=== PATIENT | male | born 1945 | race Caucasian/White ===

== ENCOUNTER → 2018-07-29 07:08 | Outpatient (CLI) | payer MEDICARE, OTHER, SELFPAY ==
--- NOTE | 2018-07-29 07:12 | CT_ITS ---
STUDY: CT ABDOMEN AND PELVIS WITH CONTRAST REASON FOR EXAM: Male, 73 years old. 6 month history of right lower rib pain. RADIATION DOSAGE (If Supplied By Facility): CTDIvol = ( 13.06 ) mGy, DLP = ( 765.55 ) mGycm TECHNIQUE: Transaxial images were obtained from the dome of the diaphragm to the symphysis pubis with oral contrast. 100 IV/Oral Isovue 300 was administered. Sagittal and coronal images were reconstructed. Individualized dose optimization techniques were used for this CT. COMPARISON: None. FINDINGS: The visualized lung bases are unremarkable. The visualized portions of the heart are within normal limits. Multiple cysts are seen scattered throughout both the right and left lobes of the liver. The largest cyst is in the medial aspect of the left lobe of liver and measures 4 cm x 2.1 cm. Normal gallbladder and extrahepatic biliary system. Normal spleen. Normal pancreas. Normal bilateral adrenal glands. Normal right kidney. There is a 7.3 cm x 6.3 cm cyst in the upper pole of the left kidney. There is a small hiatal hernia. Normal small intestine. There are multiple colonic diverticula consistent with diverticulosis. The appendix is visualized and appears normal. There is diffuse atherosclerotic calcification of the abdominal aorta and its major visceral branches, without a demonstrated aneurysm. Normal inferior vena cava. Normal retroperitoneum. Normal urinary bladder. Normal abdominal wall. Marked degree of disc space narrowing at several chondral sclerosis at the L4-L5 level. Spondylosis. CT/Abdomen/Pelvis WITH Contrast IMPRESSION: Multiple intrahepatic cysts. Dominant cyst in the upper pole of the left kidney. Sigmoid diverticulosis. Electronically Signed: Ghassan Frederick, at 10:28 EDT , Service support ,
[2018-07-29 07:31] LABS: EGFR FINGERSTICK > 60.0000 mL/min (>60)
== END ==
PROVIDERS: Family Provider Family Medicine; PCP Family Medicine; Referring Provider Family Medicine; Visit Provider Family Medicine
DX: R10.9 Unspecified abdominal pain (principal)
CPT/HCPCS: 74177; Q9967

== ENCOUNTER → 2018-10-04 | Outpatient (CLI) | payer MEDICARE, OTHER, SELFPAY ==
--- NOTE | 2018-10-04 09:54 | US_ITS ---
STUDY: ABDOMINAL ULTRASOUND - RIGHT UPPER QUADRANT REASON FOR VISIT: Male, 73 years old. Hepatic cyst TECHNIQUE: Ultrasound evaluation of the right upper quadrant was performed with real-time and static ruvalcaba-scale imaging. TECHNICAL QUALITY: Adequate. COMPARISON: CT scan from 07/29/2018 FINDINGS: Liver: The liver measures 16.0 cm. There is normal echogenicity of the liver. The bile ducts are within normal limits. There is hepatic color flow. The direction of portal flow is hepatopetal. Multiple simple cysts, largest in the right measures 1.6 cm, largest on the left 4.1 cm Gallbladder: Normal distended gallbladder. The gallbladder wall measures 2.0 mm. There is a negative sonographic Powell's sign. There is no pericholecystic fluid. There are no gallstones. Common Bile Duct (C.B.D.): The common bile duct measures 6.0 mm. Pancreas: Normal size of the head, body and tail of the pancreas. There is normal echogenicity of the pancreas. There is no demonstrated pancreatic mass or cyst. Right Kidney: Normal size of the right kidney. The right kidney measures 11.4 x 5.9 x 5.7 cm. Normal renal cortex. The right cortex measures 1.6 cm. There is a parapelvic right renal cyst measuring 1.4 cm There is no right hydronephrosis. US/Liver IMPRESSION: No suspicious sonographic findings, stable hepatic cysts Electronically Signed: Jhony Johnson MD at 15:55 EDT , Service support ,
== END | disposition home or self-care (01) ==
LOC: US 09:52
PROVIDERS: Family Provider Family Medicine; PCP Family Medicine; Referring Provider Family Medicine; Visit Provider Family Medicine
DX: K76.89 Other specified diseases of liver (principal)
CPT/HCPCS: 76705

== ENCOUNTER → 2019-05-30 10:04 | Outpatient (CLI) | payer MEDICARE, OTHER, SELFPAY ==
--- NOTE | 2019-05-30 10:08 | RAD_ITS ---
STUDY: X-RAY - RIGHT HAND, ATTENTION THUMB REASON FOR EXAM: Pain at the base of the thumb, no specific injury. TECHNIQUE: 3 view(s) of the finger were obtained. COMPARISON: None. FINDINGS: There is moderate to severe joint space narrowing of the first carpometacarpal articulation. Normal metacarpal. Normal metacarpophalangeal joint. Normal proximal phalanx. Normal distal phalanx. There are marginal osteophytes and moderate to severe joint space narrowing of the interphalangeal joint of the first digit. There is chondrocalcinosis in the triangular fibrocartilage. 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 Electronically Signed: Vince Robb MD at 10:52 EST Tel , Service support ,
== END ==
LOC: MTRAD 10:07
PROVIDERS: PCP Family Medicine; Referring Provider Family Medicine; Visit Provider Family Medicine
DX: M79.644 Pain in right finger(s) (principal)
CPT/HCPCS: 73140

== ENCOUNTER 2019-06-20 11:30 | Outpatient (RCR) | payer MEDICARE, OTHER, SELFPAY ==
--- NOTE | 2019-06-09 08:46 | HP.OTEVAL ---
Patient's Visit Information REGINA DAVILA is a 73 year old M, referred to Occupational Therapy by John Parikh MD, with a diagnosis of right thumb pain. Date of Evaluation: 06/07/19 Occupational Therapist: Vicenta Angulo, NIRAJR/Lola, CHT - Subjective Subjective: This 73 year old male was seen for OT eval with dx of right thumb pain. Pt reports pain is mostly with use of a pinch tasks. Pt states this is mostly with dressing tasks. Pt states pain has cont. to increase for the past few months. Pt would like to know what he can do to decrease pain and return to PLOF. - ADLs Fasteners: Buttons, Zippers - Pain thumb pain 1 Pain Intensity Range: 0, 8 - ROM CMC: right 15 left 20 MP: right 25 left 40 IP: right 70 left 50 Radial Abduction: right 50 left 55 ROM Comments: pt demo with a decrease in right thumb MP flex at this time - Strength Family Program Specialist: right 85# left 90# Lateral Pinch: right 12# left 16# Tripod Pinch: right12# left 18# Strength Comments: pain with release of resisitance. pt demo with right and left MP hyper- extension with testing or with pinch tasks indicating thumb instability - Sensation Sensation Comments: denies - Special Tests CMC Grind: positive - Quick DASH-Disab of Arm,Shoulder& Hand Quick DASH Score: 15.0000 - Goals Goal:: Pt will report pain no greater than 1/10 with use of bilateral hands with ADLs and IADl tasks by d/c Goal:: Pt will demo understanding of joint protection and ergonomics when performing BADLs and IADLs by d/c. Pt will demo understanding of adaptive Equipment use to decrease stress on joints to allow pt to perform BADSL and IADLS at JOSE level. Goal:: pt will demo understanding of thumb stabilization ex, and use of cmc/mp brace to limit stress on tendon/lig. 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 Pt has pain with dressing tasks along with other ADL tasks and this limits his ind. with ADLS. Pt would benefit from skilled OT services 1-2 xweek for 4 weeks to ed. pt on joint protection, thumb stabilization ex. and braces to support CMC and MP with heavy tasks. Today therapist ed. pt on CMC anatomy, thumb stabilization, ice/heat PRN, and joint protection. pt demo understanding and agree to POC. Rehabilitation Potential: Good - Anticipated Interventions Anticipated Interventions: A/AAROM/PROM, Strengthening, Modalities, Orthoses, Joint Protection/Energy Conservation, Ergonomic Education - Visit Plan Frequency: 1-2x /Week Duration: 4 Weeks TEXT: Thank you for the opportunity to evaluate your patient. For Medicare and Medicare HMO plans, please review the plan of care and approve it. It will need to be FAXED BACK to us at [phone] for Medicare purposes. Please let me know if there are questions or concerns regarding this plan of care. Physician Signature: Date:
--- NOTE | 2019-06-20 11:58 | HP.OTDCSUM ---
HP - OT D/C Summary It has been my pleasure to treat REGINA DAVILA under orders from John Parikh MD, for the diagnosis of right thumb pain for a total of 4 visit(s). Please see the following information for a summary of their discharge status. - Overall Improvement % Improvement: 50 - Objective Objective/Function: pt demo the ability to perform thumb stabilization ex well- - Goals Patient Goals: Decrease Pain, Use Hand/Wrist/Arm Normally Again, Be More Independent in ADLS Goal:: Pt will report pain no greater than 1/10 with use of bilateral hands with ADLs and IADl tasks by d/c Goal:: Pt will demo understanding of joint protection and ergonomics when performing BADLs and IADLs by d/c. Pt will demo understanding of adaptive Equipment use to decrease stress on joints to allow pt to perform BADSL and IADLS at JOSE level. Goal:: pt will demo understanding of thumb stabilization ex, and use of cmc/mp brace to limit stress on tendon/lig. structure by d/c - Plan Plan: cont with thumb stabilzation ex- PB - D/C Information Discharge Comments: Pt was seen for 4 therapy session. therapist ed. pt on joint protection, orthosis use and ad. device to decrease joint stress. pt demo understanding. pt demo understanding if pain increases to return to Dr. If there are questions or concerns regarding this patient's occupational therapy, please fell free to call me at [phone]. Thank you for the referral of this patient. Sincerely, Vicenta Angulo, OTR/L, CHT
== END 2019-06-20 19:00 | disposition home or self-care (01) ==
LOC: OT 11:30
PROVIDERS: PCP Family Medicine; Referring Provider Family Medicine; Visit Provider Family Medicine
DX: M79.644 Pain in right finger(s) (principal)
CPT/HCPCS: 97035; 97110; 97166; 97530; 97760

== ENCOUNTER → 2020-01-23 08:05 | Outpatient (CLI) | payer MEDICARE, OTHER, SELFPAY ==
[2020-01-23 10:09] LABS: ALB/GLOB Ratio 1.1 RATIO (0.9-2.4); AST(SGOT) 23 U/L (15-37); Alanine Aminotransfer ALT/SGPT 27 U/L (16-61); Albumin, Serum 3.9 g/dL (3.2-5.0); Alkaline Phosphatase 77 U/L (45-117); Anion Gap 5 (5-15); BUN 21 mg/dL (7-18); BUN/Creat Ratio 19.4 RATIO (10-20); Calcium,Total 8.9 mg/dL (8.5-10.1); Chloride 105 mmol/L (98-107); Cholesterol 212 mg/dL (200); Creatinine, Serum 1.08 mg/dL (0.70-1.30); EST Glomerular Filtration Rate 71 mL/min (>60); Est Glom Filt Rate - Afr Amer 86 mL/min (>60); Globulin 3.4 g/dL (2.2-4.2); Glucose 89 mg/dL (74-106); High Density Lipoprotein 78 mg/dL; PSA,Total - Annual Screen 0.29 ng/mL (0.00-4.00); Potassium 3.9 mmol/L (3.5-5.1); Protein, Total 7.3 g/dL (6.4-8.2); Sodium Level 140 mmol/L (136-145); Triglycerides 60 mg/dL; Very Low Density Lipoprotein 12 mg/dL (5-40)
== END ==
PROVIDERS: PCP Family Medicine; Referring Provider Family Medicine; Visit Provider Family Medicine
DX: C61 Malignant neoplasm of prostate (principal); E78.00 Pure hypercholesterolemia, unspecified
CPT/HCPCS: 36415; 80053; 80061; 84153; G0103

== ENCOUNTER → 2020-07-12 11:03 | Outpatient (CLI) | payer MEDICARE, OTHER, SELFPAY ==
--- NOTE | 2020-07-12 11:07 | RAD_ITS ---
STUDY: X-RAY - PELVIS AND RIGHT HIP REASON FOR EXAM: Male, 74 years old. HIP PAIN TECHNIQUE: 3 views of the pelvis and hip. COMPARISON: None. FINDINGS: There is a non-specific bowel gas pattern. Normal visualized soft tissue structures. No visualized fracture. Normal bilateral iliac wings, sacroiliac joints and visualized sacrum. Normal bilateral superior and inferior pubic rami. There is narrowing with sclerosis of the pubic symphysis. Normal bilateral ischial tuberosities. Normal visualized femoral head. Normal acetabulum. There is minimal narrowing of the right hip joint. Normal left hip joint space. RAD/HIP, UNI W/ Pelvis 2-3 Views IMPRESSION: Minimal narrowing of the right hip joint Electronically Signed: Roddy Shaw MD at 20:22 EST , Service support ,
== END ==
PROVIDERS: PCP Family Medicine; Referring Provider Family Medicine; Visit Provider Family Medicine
DX: M25.551 Pain in right hip (principal)
CPT/HCPCS: 73502

== ENCOUNTER → 2020-07-25 14:49 | Outpatient (CLI) | payer MEDICARE, OTHER, SELFPAY ==
--- NOTE | 2020-07-25 14:59 | ECHOD_ITS ---
Reason For Study: TRANSIENT ALTERATION OF AWARENESS Procedure This was a 2D Doppler, Color Flow transthoracic echocardiogram. Exam performed in department. Left Ventricle Normal LV size. The estimated ejection fraction is 60 %. No evidence for diastolic dysfunction. No regional wall motion abnormalities noted. Right Ventricle Normal RV size. Normal systolic function. Atria Normal left atrium. Normal right atrium. No doppler evidence for ASD. Bubble contrast study negative for right to left interatrial shunt. Mitral Valve There is no mitral valve stenosis. No mitral valve insufficiency. Tricuspid Valve There is no tricuspid stenosis. Unable to estimate RV systolic pressure due to insufficient tricuspid regurgitant envelope. Trivial tricuspid valve insufficiency. Aortic Valve Trisinus/trileaflet aortic valve. There is no aortic stenosis. Trivial aortic valve insufficiency. Pulmonic Valve There is no pulmonic valvular stenosis. Trivial pulmonic valve insufficiency. Great Vessels Normal aortic root. Pericardium/Pleural No pericardial effusion. Medication 22 gauge I.V. with prn adaptor inserted into right arm. Performed a rapid injection of agitated mix of 9 cc saline and 1cc air to assess for atrial septal defect. MMode/2D Measurements & Calculations LVIDd: 4.9 cm IVSd: 1.0 cm Ao root diam: 3.2 cm LVIDs: 3.3 cm LVPWd: 1.0 cm RVDd: 3.6 cm FS: 32.6 % LAV(MOD-bp): 52.6 ml LVAd ap4: 32.8 cm2 SV(MOD-sp4): 69.4 ml LAV(MOD-bp) Indexed: 27.0 ml/m2 EDV(MOD-sp4): 111.2 ml LAV(MOD-sp2): 50.0 ml EDV(sp4-el): 116.5 ml LAV(MOD-sp4): 49.4 ml LVAs ap4: 17.9 cm2 ESV(MOD-sp4): 41.8 ml ESV(sp4-el): 42.1 ml EF(MOD-sp4): 62.4 % EF(sp4-el): 63.9 % SV(sp4-el): 74.5 ml LA A4 area: 18.4 cm2 LA dimension(2D): 3.9 cm RA A4 area: 15.8 cm2 Time Measurements MV dec time: 0.21 sec Doppler Measurements & Calculations MV E max bradford: 72.4 cm/sec Lat Peak E' Bradford: 13.6 cm/sec Med Peak E' Bradford: 6.6 cm/sec MV A max bradford: 67.0 cm/sec E/E' lat: 5.3 E/E' med: 11.0 MV E/A: 1.1 Ao V2 max: 154.6 cm/sec LV V1 max: 113.9 cm/sec PA V2 max: 122.0 cm/sec Ao max P.6 mmHg LV V1 max P.2 mmHg PI end-d bradford: 86.3 cm/sec TR max bradford: 262.3 cm/sec TR max P.5 mmHg ECHO/Echo Complete Interpretation Summary The estimated ejection fraction is 60 %. No evidence for diastolic dysfunction. Bubble contrast study negative for right to left interatrial shunt. Ordering Physician: John Parikh Referring Physician: John Parikh Performed By: Alma Miranda RDCS
[2020-07-25 16:41] LABS: EGFR FINGERSTICK > 60.0000 mL/min (>60)
== END ==
PROVIDERS: PCP Family Medicine; Referring Provider Family Medicine; Visit Provider Family Medicine
DX: R40.4 Transient alteration of awareness (principal); R29.818 Other symptoms and signs involving the nervous system
CPT/HCPCS: 93306; A4216

== ENCOUNTER → 2020-08-26 14:10 | Outpatient (CLI) | payer MEDICARE, OTHER, SELFPAY ==
--- NOTE | 2020-08-26 14:14 | CT_ITS ---
STUDY: CTA HEAD AND NECK WITH CONTRAST REASON FOR EXAM: Male, 75 years old. NEUROLOGIC DEFICIT RADIATION DOSAGE (If Supplied By Facility): CTDIvol = ( 27.87 ) mGy, DLP = ( 1452.73 ) mGycm TECHNIQUE: CT angiography was performed with a multi-detector CT scanner. Data acquisition was obtained from the skull base through the vertex following intravenous administration of IV 100mL Isovue-370. MIP images were reconstructed from the axial data set. Post-processing of the angiographic images was performed, with multiplanar reformation and 3D reconstruction. Individualized dose optimization techniques were used for this CT. COMPARISON: No relevant priors. FINDINGS: There is a 6.5 mm hypodensity in the midportion of the right lobe of the thyroid. Normal bilateral petrous carotid arteries. There is calcified plaque formation of the right cavernous carotid artery, without a cross-sectional luminal stenosis. There is calcified plaque formation of the left cavernous carotid artery, without a cross-sectional luminal stenosis. Normal right A1 segments of the anterior cerebral artery. Normal left A1 segments of the anterior cerebral artery. Normal intact anterior communicating artery (ACOM). Normal bilateral A2 segments of the anterior cerebral arteries. Normal right M1 and M2 segments of the middle cerebral arteries, with a normal M1 bifurcation. Normal left M1 and M2 segments of the middle cerebral arteries, with a normal M1 bifurcation. Normal right posterior communicating artery (PCOM). Normal left posterior communicating artery (PCOM). Normal bilateral vertebral arteries. Normal basilar artery with a normal basilar bifurcation. The visualized bilateral superior cerebellar (SCA) arteries are normal. Normal bilateral P1, P2 and visualized P3 segments of the posterior cerebral arteries. There is no demonstrated aneurysm of the [place]. There is no demonstrated abnormality of the visualized brain. AORTIC ARCH: Normal visualized aortic arch. Normal origins of the brachiocephalic, left common carotid, and left subclavian arteries. RIGHT CAROTID ARTERIES: Normal right common carotid artery (CCA). Normal right common carotid bulb. There is mild atherosclerotic plaque formation of the origin of the right internal carotid artery with less than 50% cross sectional diameter stenosis. Normal visualized cervical portion of the right internal carotid artery. Normal origin of the right external carotid artery (ECA). LEFT CAROTID ARTERIES: Normal left common carotid artery (CCA). Normal left common carotid bulb. There is moderate atherosclerotic plaque formation of the origin of the left internal carotid artery with an estimated stenosis of 50-69% stenosis. Normal visualized cervical portion of the left internal carotid artery. Normal origin of the left external carotid artery (ECA). VERTEBRAL ARTERIES: Normal bilateral vertebral arteries. CT/CTA Head AND Neck W/ Contrast IMPRESSION: Calcific plaque at the origin of the right internal carotid artery causing less than 50% narrowing. Calcific plaque at the origin of the left internal carotid artery causing between 50 and 69% stenosis. Electronically Signed: Ghassan Frederick MD at 15:11 EDT , Service support ,
== END ==
PROVIDERS: PCP Family Medicine; Referring Provider Family Medicine; Visit Provider Family Medicine
DX: R29.818 Other symptoms and signs involving the nervous system (principal)
CPT/HCPCS: 70496; 70498; Q9967

== ENCOUNTER → 2021-01-24 08:04 | Outpatient (CLI) | payer MEDICARE, OTHER, SELFPAY ==
[2021-01-24 10:21] LABS: AST(SGOT) 20 U/L (15-37); Alanine Aminotransfer ALT/SGPT 30 U/L (16-61); Albumin, Serum 3.6 g/dL (3.2-5.0); Alkaline Phosphatase 75 U/L (45-117); Anion Gap 6 (5-15); BUN 24 mg/dL (7-18); BUN/Creat Ratio 24.5 RATIO (10-20); Calcium,Total 8.9 mg/dL (8.5-10.1); Chloride 107 mmol/L (98-107); Cholesterol 222 mg/dL (200); Creatinine, Serum 0.98 mg/dL (0.70-1.30); EST Glomerular Filtration Rate 80 mL/min (>60); Est Glom Filt Rate - Afr Amer 96 mL/min (>60); Globulin 3.7 g/dL (2.2-4.2); Glucose 94 mg/dL (74-106); High Density Lipoprotein 70 mg/dL; PSA,Total - Annual Screen 0.39 ng/mL (0.00-4.00); Potassium 4.2 mmol/L (3.5-5.1); Protein, Total 7.3 g/dL (6.4-8.2); Sodium Level 139 mmol/L (136-145); Triglycerides 61 mg/dL; Very Low Density Lipoprotein 12 mg/dL (5-40)
== END ==
PROVIDERS: PCP Family Medicine; Referring Provider Family Medicine; Visit Provider Family Medicine
DX: E78.00 Pure hypercholesterolemia, unspecified (principal); Z12.5 Encounter for screening for malignant neoplasm of prostate
CPT/HCPCS: 36415; 80053; 80061; 84153; G0103

== ENCOUNTER → 2021-04-22 | Outpatient (CLI) | payer MEDICARE, OTHER, SELFPAY | END | disposition home or self-care (01) | LOC: LABSPEC 16:11 | PROVIDERS: PCP Family Medicine; Referring Provider Family Medicine; Visit Provider Family Medicine | DX: J39.9 Disease of upper respiratory tract, unspecified (principal) | CPT/HCPCS: 87633; 87635; U0005; U0003 ==

== ENCOUNTER 2021-05-06 08:05 | Outpatient (CLI) | payer MEDICARE, OTHER, SELFPAY ==
[2021-05-06 10:18] LABS: Cholesterol 145 mg/dL (200); High Density Lipoprotein 62 mg/dL; Triglycerides 80 mg/dL; Very Low Density Lipoprotein 16 mg/dL (5-40)
== END 2021-05-06 23:59 | disposition short-term general hospital (02) ==
LOC: MFPLAB 08:06
PROVIDERS: PCP Family Medicine; Referring Provider Family Medicine; Visit Provider Nurse Practitioner Family
DX: E78.00 Pure hypercholesterolemia, unspecified (principal)
CPT/HCPCS: 36415; 80061

== ENCOUNTER → 2021-10-23 | Outpatient (CLI) | payer MEDICARE, OTHER, SELFPAY ==
[2021-10-23 10:51] LABS: ALB/GLOB Ratio 1.2 RATIO (0.9-2.4); AST(SGOT) 22 U/L (15-37); Alanine Aminotransfer ALT/SGPT 33 U/L (16-61); Albumin, Serum 3.8 g/dL (3.2-5.0); Alkaline Phosphatase 77 U/L (45-117); Anion Gap 8 (5-15); BUN 19 mg/dL (7-18); BUN/Creat Ratio 18.6 RATIO (10-20); Calcium,Total 9.2 mg/dL (8.5-10.1); Chloride 108 mmol/L (98-107); Creatinine, Serum 1.02 mg/dL (0.70-1.30); EST Glomerular Filtration Rate 76 mL/min (>60); Est Glom Filt Rate - Afr Amer 92 mL/min (>60); Globulin 3.2 g/dL (2.2-4.2); Glucose 95 mg/dL (74-106); Potassium 3.9 mmol/L (3.5-5.1); Sodium Level 141 mmol/L (136-145)
== END | disposition home or self-care (01) ==
LOC: MFPLAB 08:04
PROVIDERS: PCP Family Medicine; Referring Provider Family Medicine; Visit Provider Family Medicine
DX: E78.5 Hyperlipidemia, unspecified (principal)
CPT/HCPCS: 36415; 80053

== ENCOUNTER → 2022-02-20 | Outpatient (CLI) | payer MEDICARE, OTHER, SELFPAY ==
[2022-02-20 09:57] LABS: Absolute Lymphocyte Count 1.46 X10^3/uL (0.83-4.51); Absolute Neutrophil Count 3.4 X10^3/uL (2.0-7.7); Basophil# 0.04 X10^3/uL; Basophil% 0.7 % (0-1); Eosinophil# 0.14 X10^3/uL; Eosinophils% 2.4 % (0-5); Hematocrit 41.5 % (40-54); Hemoglobin 14.1 g/dL (13.0-16.5); Lymphocyte # 1.46 X10^3/ul (0.83-4.51); Lymphocyte % 25.2 % (19-41); Mean Corpuscular Hgb 31.8 pg (27.0-32.0); Mean Corpuscular Volume 93.5 fL (80-94); Mean Platelet Vol. 10.2 fl (6.2-12.0); Monocyte# 0.75 X10^3/uL; NRBC Flagged by Analyzer 0 % (0-5); Neutrophil # 3.38 X10^3/uL (2.7-7.7); Neutrophil % 58.4 % (47-70); Platelet Count 242 K/mm3 (150-450); RBC Distribution Width CV 12.2 % (11.6-14.6); RBC Distribution Width SD 41.8 fl (35.1-43.9); Red Blood Count 4.44 M/mm3 (4.6-6.2); White Blood Count 5.8 K/mm3 (4.4-11.0)
[2022-02-20 10:38] LABS: ALB/GLOB Ratio 1.1 RATIO (0.9-2.4); AST(SGOT) 21 U/L (15-37); Alanine Aminotransfer ALT/SGPT 31 U/L (16-61); Albumin, Serum 3.7 g/dL (3.2-5.0); Alkaline Phosphatase 72 U/L (45-117); Anion Gap 6 (5-15); BUN 17 mg/dL (7-18); BUN/Creat Ratio 15.5 RATIO (10-20); Chloride 108 mmol/L (98-107); Cholesterol 122 mg/dL (200); EST Glomerular Filtration Rate 69 mL/min (>60); Est Glom Filt Rate - Afr Amer 84 mL/min (>60); Globulin 3.3 g/dL (2.2-4.2); Glucose 94 mg/dL (74-106); High Density Lipoprotein 69 mg/dL; PSA,Total - Annual Screen 0.45 ng/mL (0.00-4.00); Potassium 4.1 mmol/L (3.5-5.1); Sodium Level 141 mmol/L (136-145); Triglycerides 38 mg/dL; Very Low Density Lipoprotein 8 mg/dL (5-40)
== END | disposition home or self-care (01) ==
LOC: MFPLAB 08:06
PROVIDERS: PCP Family Medicine; Referring Provider Family Medicine; Visit Provider Family Medicine
DX: E78.00 Pure hypercholesterolemia, unspecified (principal); G47.9 Sleep disorder, unspecified; Z12.5 Encounter for screening for malignant neoplasm of prostate
CPT/HCPCS: 36415; 80053; 80061; 84153; 85025; G0103

== ENCOUNTER 2022-02-23 09:30 | Outpatient (RCR) | payer MEDICARE, OTHER, SELFPAY ==
--- NOTE | 2022-01-29 12:12 | HP.PTEVAL ---
Patient's Visit Information REGINA DAVILA is a 76 year old M referred to Physical Therapy by Dr. Titus Zuniga DO with a diagnosis of CERVICAL STENOSIS, SPONDYLOSIS AND DDD. Date of Evaluation: 01/29/22 Physical Therapist: Jaida Zheng PT, Cert MDT - Visit Plan Frequency: 2-3x /Week Duration: 4-6 Weeks Plan: POSTURE CORRECTION/STRENGTHENING, INSTRUCTION IN APPROPRIATE BODY MECHANICS AND ACTIVITY MODIFICATIONS. TABITHA UE ROM, STRETCHING AND STRENGTHENING. HEP INSTRUCTION. - Subjective Diagnosis: Work/Leisure: RETIRED. Present symptoms: NECK PAIN. DENIES TABITHA UE SX'S. Present since: ABOUT 2.5 WKS AGO THIS EPISODE. Pain Scale: Worst - 8/10 Least - 0/10. Currently: 06/12. Commenced as a result of: NO APPARENT REASON. Symptoms at onset: NECK PAIN. Worse: TURNING HEAD QUICKLY. ALMOST ANY STRENUOUS ACTIVITY. 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 Better: NOTHING. Disturbed sleep: SOMETIMES. Previous history/Previous treatment: 6 YEARS AGO BLOWING LEAVES WITH BACK PACK ON AND FELL BACKWARDS AND SNAPPED HEAD BACK - 4 WKS OF REHAB AT [facility] - IT HELPED ALONG WITH TIME. EVENTUALLY RESOLVED COMPLETELY. HAS HAD A FEW FLARE UP'S SINCE BUT NOT SEVERE THIS ONE. This episode: ONE CONSULT WITH DR. ZUNIGA. STATES DR. ZUNIGA DISCUSSED PT, INJECTIONS AND SURGERY OPTIONS AND HE REQUESTED TO START WITH PT. Dizziness: NO. Tinnitis: CHRONIC. Nausea: NO. Shortness of Breath: NO. Difficulty Swollowing: NO. Gait: NORMAL. Accidents: NO OTHERS. Unexplained weight loss: NO. Imaging: RECENT NECK X-RAYS REVEALING ARTHRITIS PER PATIENT REPORT. PMH/Recent major surgery: HIGH CHOLESTEROL. - Objective Sitting Posture/Standing Posture: POOR. FH. ROUNDED SHLDS. R SHLD LEVEL LOWER THAN LEFT. NO TORTICOLLIS. Active Correction of posture: WORSE. Other Observations: INDEP GAIT AND TRANSFERS. Sensory deficit: TABITHA UE LIGHT TOUCH SENSATION IS GROSSLY INTACT AND SYMMETRICAL. ROM deficit: TABITHA UE ROM IS WFL AND PATIENT DENIES INCREASED NECK PAIN WITH TESTING. Motor deficit: TABITHA UE STRENGTH IS GROSSLY 5/5 WITH MMT'ING. Dural Signs: NEGATIVE TABITHA UE'S. Cervical Mvmt Loss: Flex: NIL. Pro: NIL. Ext: MOD. Ret: [place]. RSB: MOD. LSB: MOD. R Rot: MOD. L Rot: MOD. PATIENT REPORTS PULLING BUT NO PAIN WITH CERVICAL ROM TESTING ALL PLANES. Postural strength: POOR. ONLY ABLE TO PARTIALLY CORRECT. Palpation: NO ACUTE TENDERNESS OF UPPER THORACIC, CERVICAL, OR OCCIPUT REGIONS. INCREASED MUSCLE TONE TABITHA UT'S WITH MULTIPLE TRIGGER POINTS. OTHER: SEATED CERVICAL DISTRACTION TESTING - NE. TREATMENT: THER ACT - INSTRUCTION IN PROPER ERGONOMICS WITH DEVICES/LAP TOP. US AT 1.5 W/CM2 X 8 MIN TO TABITHA POSTERIOR CERVICAL MUSCULATURE IN SITTING. PATIENT COMMUNICATED A GOOD UNDERSTANDING OF ALL INSTRUCTIONS AFTER GIVEN AND TOLERATED US WELL. - Balance/Special Test Scores Oswestry Neck Score: 11 - Goals Goal 1:: DECREASE C/O NECK PAIN Goal Time Frame: 4-6 Weeks Goal 2:: IMPROVE LIFTING, READING, SLEEP, WORK, DRIVING AND RECREATIONAL FUNCTION Goal Time Frame: 4-6 Weeks Goal 3:: INSTRUCT IN PROPHYLAXIS Goal Time Frame: 4-6 Weeks - Anticipated Interventions Patient/Client Instruction: Educate patient on: Condition, Plan of Care, Risk Factors For the Purpose of:: To improve self management Therapeutic Exercise to Include: Strength training, Body mechanics, Postural training, Flexibilty training, Neuromotor development, Scapular Strength/Stabilization For the Purpose of:: To decrease pain, To increase ROM, To improve muscle performance and motor function, To increase tolerance to activity/condition/position, To improve ability of physical actions for home/community/work/leisure Ultrasound (thermal/non thermal): Yes For the Purpose of:: To decrease pain, To improve nutrient delivery to tissue Thank you for the opportunity to evaluate your patient. For Medicare and Medicare HMO plans, please review the plan of care and approve it. It will need to be FAXED BACK to us at [phone] for Medicare purposes. For Medicare only, by signing this I certify the plan of care. Please let me know if there are questions or concerns regarding this plan of care. Physician Signature: Date:
--- NOTE | 2022-02-23 09:58 | HP.PTDCSUM_ITS ---
It has been my pleasure to treat REGINA DAVILA referred by Dr. Titus Zuniga DO, with the diagnosis of CERVICAL STENOSIS, SPONDYLOSIS AND DDD for a total of 9 visit(s). Discharge Date: 02/23/22 Please see the following information for a summary of their discharge status. Subjective: PATIENT REPORTS HIS NECK PAIN IS MUCH BETTER. HE REPORTS HE STILL HAS SOME SORENESS ON THE LEFT SIDE OF HIS NECK BUT HE DOESN'T NEED TO TAKE ANY MEDICATION FOR IT AND IT DOESN'T STOP HIM FROM DOING ANYTHING HE WANTS TO DO. HE REPORTS HE COULD LIVE THE REST OF HIS LIFE THIS WAY. PATIENT REPORTS HE IS HOPEFUL HE WILL GET COMPLETELY OVER THIS EPISODE WITH TIME AND THE EX'S. Cervical Pain Intensity (Out of 10): 0 % Improvement: 80 Objective/Function: PATIENT WAS SEEN TODAY FOR RE-ASSESSMENT OF PROGRESS TOWARD THE SET PT GOALS AND THE NEED FOR FURTHER PHYSICAL THERAPY VS READINESS FOR DISCHARGE. UPON EXAM TODAY: Cervical Mvmt Loss: Flex: NIL. Pro: NIL. Ext: MOD. Ret: [place]. RSB: MOD. LSB: MOD. R Rot: MOD. L Rot: MOD. PATIENT DENIES ANY SX'S WITH CERVICAL ROM TESTING ALL PLANES EXCEPT LEFT ROTATION WHICH CAUSE A LITTLE BIT OF SORENESS IN HIS LEFT NECK AREA. ENCOURAGE PATIENT TO FOLLOW UP WITH DR. ZUNIGA RECOMMENDED BY DR. ZUNIGA AND IF HIS SX'S WORSEN OR D O NOT RESOLVE COMPLETELY BACK TO BASELINE. [ End ] Goal 1:: DECREASE C/O NECK PAIN Goal Progress: Goal Met Goal 2:: IMPROVE LIFTING, READING, SLEEP, WORK, DRIVING AND RECREATIONAL FUNCTION Goal Progress: Goal Met Goal 3:: INSTRUCT IN PROPHYLAXIS Goal Progress: Goal Met Plan: D/C TO INDEP GYM PROGRAM. PATIENT IS AGREEABLE. If there are questions or concerns regarding this patient's physical therapy, please feel free to call me at [phone]. Thank you for the referral of this patient. Sincerely, Jaida Zheng, PT, Cert MDT Balance/Gait/Functional tests - Balance/Special Test Scores Oswestry Neck Score: 0
== END 2022-02-23 10:10 | disposition home or self-care (01) ==
LOC: PT 09:30
PROVIDERS: PCP Family Medicine; Referring Provider Orthopaedic Surgery; Visit Provider Orthopaedic Surgery
DX: M48.02 Spinal stenosis, cervical region (principal); M50.30 Other cervical disc degeneration, unspecified cervical region; M47.812 Spondylosis without myelopathy or radiculopathy, cervical region
CPT/HCPCS: 97035; 97110; 97161; 97164; 97530

== ENCOUNTER 2022-12-17 12:58 | Outpatient (RCR) | payer MEDICARE, OTHER, SELFPAY ==
--- NOTE | 2022-12-17 13:58 | HP.PTEVAL ---
Patient's Visit Information Visit Information Visit Information: REGINA DAVILA is a 77 year old M referred to Physical Therapy by SARAHI Barriga with a diagnosis of R lat meniscal tear. Date of Evaluation: 12/17/22 Physical Therapist: Michael Snyder, PT, ATC Visit Plan Frequency: 1x/Week Duration: 2 Weeks Plan: Pt will perform I gym routine x 1 month. Pt to follow up or DC at that time pending whether pain returns or not Subjective Subjective: Pt reports his R knee has been sore for several months. Pt reports he has had x-rays and an MRI which revealed torn meniscus in the lateral compartment of the R knee. Pt reports he has no pain today, and hasn't had pain for approximately 4 weeks. However, pt notes when he has pain, it is severe. Pt reports he is not limited with walking, stair negotiation, golfing, or any other activity at this time. Pt denies tingling or numbness in his LE's at this time. Pt reports No PHMx of R knee injury, and is not sure how he tore his meniscus. 0/10 pain this date. Pain R knee: Pain Intensity (Out of 10): 0 Objective Objective: Neuro: B LE sensation is WNL to light touch Palpation: No pain, no obvious deformity at this time ROM: B knees 0-120 degrees MMT: R knee flex= 36, ext= 43; L knee flex= 37, ext= 52 #F Balance/Special Test Scores Lower Extremity Functional Score: 68 Goals Goal 1:: Pt will perform his gym routine and remain pain free for one month Goal Time Frame: 4-6 Weeks Goal 2:: Increase R knee ext MMT x 5 #F to aid with IADL's Goal Time Frame: 4-6 Weeks Rehabilitation Potential Physical Therapy Diagnosis: Pt had R knee pain and weakness secondary to lateral meniscus tear Rehabilitation Potential: Excellent Anticipated Interventions Patient/Client Instruction: Educate patient on: Condition and Plan of Care For the Purpose of:: To improve self management Therapeutic Exercise to Include: Strength training, Endurance training, Body mechanics and Dynamic Lumbar Stabilization For the Purpose of:: To decrease pain and To improve muscle performance and motor function Text: Thank you for the opportunity to evaluate your patient. For Medicare and Medicare HMO plans, please review the plan of care and approve it. It will need to be FAXED BACK to us at [phone] for Medicare purposes. For Medicare only, by signing this I certify the plan of care. Please let me know if there are questions or concerns regarding this plan of care. Physician Signature: Date:
--- NOTE | 2023-01-12 11:30 | HP.PTDCSUM ---
Discharge Summary D/C summary: It has been my pleasure to treat REGINA DAVILA referred by SARAHI Barriga, with the diagnosis of R lat meniscal tear for a total of 2 visit(s). Discharge Date: Please see the following information for a summary of their discharge status. Subjective Subjective: Pt returns today noting he has been pain free for the last month. Pain R knee: Pain Intensity (Out of 10): 0 Overall Improvement % Improvement: 100 Objective Objective/Function: Pt is pain free and I with gym routine Goals Goal 1:: Pt will perform his gym routine and remain pain free for one month Goal Progress: Goal Met Goal 2:: Increase R knee ext MMT x 5 #F to aid with IADL's Plan Plan: Discharge to I gym routine D/C Information d/c sentence: If there are questions or concerns regarding this patient's physical therapy, please feel free to call me at [phone]. Thank you for the referral of this patient. Sincerely, Michael Snyder, PT, ATC Balance/Gait/Functional tests Balance/Special Test Scores Lower Extremity Functional Score: 68 Improvement % Improvement: 100
== END 2022-12-17 19:00 | disposition home or self-care (01) ==
LOC: PT 12:58
PROVIDERS: PCP Family Medicine; Referring Provider Physician Assistant Surgical; Visit Provider Physician Assistant Surgical
DX: S83.281D Other tear of lateral meniscus, current injury, right knee, subsequent encounter (principal); S83.231D Complex tear of medial meniscus, current injury, right knee, subsequent encounter; S83.411D Sprain of medial collateral ligament of right knee, subsequent encounter
CPT/HCPCS: 97161

== ENCOUNTER → 2023-02-16 | Outpatient (CLI) | payer MEDICARE, OTHER, SELFPAY ==
[2023-02-16 11:48] LABS: ALB/GLOB Ratio 1.2 RATIO (0.9-2.4); AST(SGOT) 15 U/L (15-37); Alanine Aminotransfer ALT/SGPT 29 U/L (16-61); Albumin, Serum 3.8 g/dL (3.2-5.0); Alkaline Phosphatase 73 U/L (45-117); Anion Gap 4 (5-15); BUN 19 mg/dL (7-18); BUN/Creat Ratio 17.6 RATIO (10-20); Calcium,Total 9.2 mg/dL (8.5-10.1); Chloride 111 mmol/L (98-107); Cholesterol 132 mg/dL (200); Creatinine, Serum 1.08 mg/dL (0.70-1.30); EST Glomerular Filtration Rate 71 mL/min (>60); Est Glom Filt Rate - Afr Amer 86 mL/min (>60); Globulin 3.3 g/dL (2.2-4.2); Glucose 92 mg/dL (74-106); High Density Lipoprotein 71 mg/dL; Potassium 3.9 mmol/L (3.5-5.1); Protein, Total 7.1 g/dL (6.4-8.2); Sodium Level 141 mmol/L (136-145); Triglycerides 45 mg/dL; Very Low Density Lipoprotein 9 mg/dL (5-40)
== END | disposition home or self-care (01) ==
LOC: MFPLAB 08:08
PROVIDERS: PCP Family Medicine; Visit Provider Family Medicine
DX: Z00.00 Encounter for general adult medical examination without abnormal findings (principal); Z13.6 Encounter for screening for cardiovascular disorders
CPT/HCPCS: 36415; 80053; 80061

== ENCOUNTER → 2023-02-22 | Outpatient (CLI) | payer MEDICARE, OTHER, SELFPAY ==
[2023-02-22 10:45] LABS: ALB/GLOB Ratio 1.1 RATIO (0.9-2.4); AST(SGOT) 18 U/L (15-37); Alanine Aminotransfer ALT/SGPT 27 U/L (16-61); Albumin, Serum 3.5 g/dL (3.2-5.0); Alkaline Phosphatase 69 U/L (45-117); Anion Gap 5 (5-15); BUN 19 mg/dL (7-18); BUN/Creat Ratio 17.9 RATIO (10-20); Calcium,Total 9.2 mg/dL (8.5-10.1); Chloride 108 mmol/L (98-107); Cholesterol 131 mg/dL (200); Creatinine, Serum 1.06 mg/dL (0.70-1.30); EST Glomerular Filtration Rate 72 mL/min (>60); Est Glom Filt Rate - Afr Amer 88 mL/min (>60); Globulin 3.3 g/dL (2.2-4.2); Glucose 94 mg/dL (74-106); High Density Lipoprotein 73 mg/dL; PSA,Total - Annual Screen 0.44 ng/mL (0.00-4.00); Potassium 4.2 mmol/L (3.5-5.1); Protein, Total 6.8 g/dL (6.4-8.2); Sodium Level 141 mmol/L (136-145); Triglycerides 43 mg/dL; Very Low Density Lipoprotein 9 mg/dL (5-40)
== END | disposition home or self-care (01) ==
LOC: MFPLAB 07:55
PROVIDERS: PCP Family Medicine; Visit Provider Family Medicine
DX: E78.00 Pure hypercholesterolemia, unspecified (principal); Z12.5 Encounter for screening for malignant neoplasm of prostate
CPT/HCPCS: 36415; 80053; 80061; 84153; G0103

== ENCOUNTER → 2023-04-27 | Outpatient (CLI) | payer MEDICARE, OTHER, SELFPAY ==
--- NOTE | 2023-04-27 15:50 | RAD_ITS ---
EXAM: XR RIGHT HIP WITH PELVIS WHEN PERFORMED, 2 OR 3 VIEWS CLINICAL INDICATION: right hip pain TECHNIQUE: Two or three views of the right hip with pelvis when performed. COMPARISON: 07/12/2020 FINDINGS: BONES/JOINTS: Degenerative changes in the lower lumbar spine. Symmetric degenerative changes of the SI joints. Right greater than left superior femoral acetabular joint space narrowing and osteophytosis of the acetabulum. No displaced fracture. No destructive or sclerotic lesions. Note that overlapping bowel shadows may however obscure fine detail. No widening of the pubic symphysis. SOFT TISSUES: No significant abnormality. No soft tissue swelling or gas. RAD/HIP, UNI W/ Pelvis 2-3 Views IMPRESSION: Degenerative changes, right greater than left similar to the prior exam. Electronically Signed: Cedrick Varghese DO at 16:10 EST ,
== END | disposition home or self-care (01) ==
LOC: MTRAD 15:46
PROVIDERS: PCP Family Medicine; Referring Provider Family Medicine; Visit Provider Family Medicine
DX: M25.551 Pain in right hip (principal)
CPT/HCPCS: 73502

== ENCOUNTER → 2023-08-10 | Outpatient (CLI) | payer MEDICARE, OTHER, SELFPAY ==
[2023-08-10 13:36] LABS: Cholesterol 134 mg/dL (200); High Density Lipoprotein 67 mg/dL; Triglycerides 47 mg/dL; Very Low Density Lipoprotein 9 mg/dL (5-40)
== END | disposition home or self-care (01) ==
LOC: MFPLAB 08:01
PROVIDERS: PCP Family Medicine; Visit Provider Family Medicine
DX: E78.00 Pure hypercholesterolemia, unspecified (principal); I65.29 Occlusion and stenosis of unspecified carotid artery
CPT/HCPCS: 36415; 80061

== ENCOUNTER → 2024-02-15 | Outpatient (CLI) | payer MEDICARE, OTHER, SELFPAY ==
[2024-02-15 10:15] LABS: Absolute Neutrophil Count 2.2 X10^3/uL (2.0-7.7); Basophil# 0.02 X10^3/uL; Basophil% 0.5 % (0-1); Eosinophil# 0.16 X10^3/uL; Eosinophils% 3.7 % (0-5); Hematocrit 39.2 % (40-54); Lymphocyte % 32.1 % (19-41); Mean Corp Hgb Conc 33.2 g/dL (32-36); Mean Corpuscular Hgb 31.3 pg (27.0-32.0); Mean Corpuscular Volume 94.2 fL (80-94); Mean Platelet Vol. 10.1 fl (6.2-12.0); Monocyte# 0.52 X10^3/uL; Monocyte% 11.9 % (0-10); NRBC Flagged by Analyzer 0 % (0-5); Neutrophil # 2.24 X10^3/uL (2.7-7.7); Neutrophil % 51.3 % (47-70); Platelet Count 196 K/mm3 (150-450); RBC Distribution Width CV 12.8 % (11.6-14.6); Red Blood Count 4.16 M/mm3 (4.6-6.2); White Blood Count 4.4 K/mm3 (4.4-11.0)
[2024-02-15 10:47] LABS: ALB/GLOB Ratio 1.2 RATIO (0.9-2.4); AST(SGOT) 14 U/L (15-37); Alanine Aminotransfer ALT/SGPT 21 U/L (16-61); Albumin, Serum 3.7 g/dL (3.2-5.0); Alkaline Phosphatase 68 U/L (45-117); Anion Gap 3 (5-15); BUN 16 mg/dL (7-18); BUN/Creat Ratio 14.5 RATIO (10-20); Calcium,Total 9.2 mg/dL (8.5-10.1); Chloride 108 mmol/L (98-107); EST Glomerular Filtration Rate 69 mL/min (>60); Est Glom Filt Rate - Afr Amer 84 mL/min (>60); Glucose 95 mg/dL (74-106); Protein, Total 6.7 g/dL (6.4-8.2); Sodium Level 140 mmol/L (136-145)
[2024-02-15 11:04] LABS: Microalbumin,Random Urine < 5.0 mg/L (NO RANGE EST.)
== END | disposition home or self-care (01) ==
LOC: MFPLAB 08:04
PROVIDERS: PCP Family Medicine; Visit Provider Family Medicine
DX: I10 Essential (primary) hypertension (principal)
CPT/HCPCS: 36415; 80053; 82043; 82570; 85025

== ENCOUNTER → 2024-08-17 | Outpatient (CLI) | payer MEDICARE, OTHER, SELFPAY ==
[2024-08-17 10:48] LABS: ALB/GLOB Ratio 1.8 RATIO (0.9-2.4); AST(SGOT) 21 U/L (<=37); Alanine Aminotransfer ALT/SGPT 18 U/L (<=46); Albumin, Serum 4.3 g/dL (3.4-4.8); Alkaline Phosphatase 66 U/L (40-129); Anion Gap 12 (5-15); BUN 19 mg/dL (4-19); BUN/Creat Ratio 16.6 RATIO (10-20); Calcium,Total 9.6 mg/dL (7.6-11.0); Carbon Dioxide 23.4 mmol/L (21.0-32.0); Chloride 106 mmol/L (98-108); Cholesterol 149 mg/dL (<=200); Creatinine, Serum 1.16 mg/dL (0.70-1.20); EST Glomerular Filtration Rate 65 (>60); Globulin 2.4 g/dL (2.2-4.2); Glucose 93 mg/dL (70-99); High Density Lipoprotein 55 mg/dL; Low Density Lipoprotein Calc. 80 mg/dL; PSA,Total - Annual Screen 0.48 ng/mL (0.02-4.00); Potassium 4.5 mmol/L (3.3-5.1); Protein, Total 6.7 g/dL (5.9-8.4); Sodium Level 141 mmol/L (133-145); Total Bilirubin 0.24 mg/dL (0.00-1.30); Triglycerides 71 mg/dL; Very Low Density Lipoprotein 14 mg/dL (5-40); cholesterol:hdl ratio screen 2.72
== END | disposition home or self-care (01) ==
LOC: MFPLAB 08:09
PROVIDERS: PCP Family Medicine; Referring Provider Family Medicine; Visit Provider Family Medicine
DX: E78.00 Pure hypercholesterolemia, unspecified (principal); Z12.5 Encounter for screening for malignant neoplasm of prostate
CPT/HCPCS: 36415; 80053; 80061; 84153; G0103